=== PATIENT | female | born 1980 | race Caucasian/White ===

== ENCOUNTER 2020-12-11 13:59 | Emergency (ER) | payer OTHER, SELFPAY ==
--- NOTE | ~2020-12-11 | CT_ITS ---
EXAMINATION: CT abdomen pelvis w con EXAM DATE: 12/11/2020 18:39 INDICATION: Lower abd pain history of ovarian cyst. TECHNIQUE: Spiral CT of the abdomen and pelvis was performed following intravenous injection of 100 m L Omnipaque 350. Axial, coronal and sagittal images of the abdomen and pelvis were reviewed. The do se-length product (DLP) for this examination was 618.20 mGy-cm. The exposure was tailored according to patient size (auto mA exposure control), and iterative reconstruction (ASIR) was used as additiona l dose reduction technique. Comparison is made to prior examination from 12/28/2006. FINDINGS: There are multiple fibroids, largest is exophytic anteriorly measuring 12.6 x 8.2 cm. There is a cystic region posterior to the right ovary and uterus measuring 8.5 x 6.5 cm which is low densi ty centrally, probably cystic with a thick wall. Differential diagnosis includes tubo-ovarian abscess , degenerating fibroid. There is small amount of ascites and some generalized mesenteric fat strandin g. The liver, spleen, adrenal glands and pancreas are unremarkable. There are cholecystectomy clips. P ortal and splenic veins are patent. Kidneys enhance symmetrically. There is no hydronephrosis. Th e bladder is unremarkable. There is no retroperitoneal or pelvic lymphadenopathy. The appendix is normal. The stomach and small bowel are unremarkable. There is expected amount of c olonic stool. No free intraperitoneal gas. The heart is normal in size. There are no pericardial or pleural effusions. Right basilar subsegmental atelectasis. There are no osteoblastic or osteoly tic lesions identified. IMPRESSION: Fibroids, another right periadnexal cystic-appearing thick-walled mass which could be a t ubo-ovarian abscess, degenerating fibroid or ovarian malignancy. Small amount of ascites and fat str anding. Reviewed, dictated and finalized at location A. IMPRESSION: Fibroids, another right periadnexal cystic-appearing thick-walled m ass which could be a tubo-ovarian abscess, degenerating fibroid or ovarian eliana gnancy. Small amount of ascites and fat stranding.
[2020-12-11 14:06] VITALS: BP 134/77; PULSE 110; RESP 14; TEMP 36.4; O2SAT 99
[2020-12-11 14:22] LABS: Basophils Absolute Auto 0.1 K/mm3 (0.0-0.1); Basophils Percent Auto 0.3 % (0.2-1.2); Eosinophils Percent Auto 0.1 % (0-4.4); Hematocrit 39.3 % (37.0-47.0); Hemoglobin 13.3 g/dL (12.0-15.0); Immature Granulocyte Percent A 0.5 % (0-0.5); Lymphocytes Percent Auto 7.7 % (18.3-44.2); Mean Corpuscular HGB Conc 33.8 g/dl (32-36); Mean Corpuscular Hemoglobin 29.4 pg (26-34); Mean Corpuscular Volume 86.8 fl (80-100); Mean Platelet Volume 9.9 fl (7.4-10.4); Monocytes Absolute Auto 1.2 K/mm3 (0.1-0.6); Monocytes Percent Auto 6.2 % (2.6-8.5); Neutrophils Absolute Auto 16.7 K/mm3 (1.3-6.7); Neutrophils Percent Auto 85.2 % (45.5-73.1); Platelet Count Result 337 k/mm3 (150-375); Red Blood Count 4.53 M/mm3 (4.2-5.4); Red Cell Distribution Width 13.4 % (11.5-14.5); White Blood Count 19.6 K/mm3 (4.5-10.0)
[2020-12-11 14:32] LABS: Alanine Aminotransferase 89 U/L (4-35); Albumin Level 4.5 g/dL (3.5-5.1); Alkaline Phosphatase 104 U/L (38-126); Anion Gap 10 mmol/L (8-16); Aspartate Amino Transferase 86 U/L (14-36); Bilirubin,Total 1.5 mg/dL (0.2-1.3); Blood Urea Nitrogen 22 mg/dL (7-17); Calcium 9.4 mg/dL (8.4-10.2); Carbon Dioxide 24 mmol/L (22-30); Chloride 105 mmol/L (98-107); Estimated CRCL calculation 71 ml/min; Estimated Glomerular Filt Rate > 60; Glucose 172 mg/dL (65-110); Lipase 21 U/L (23-300); Potassium 3.7 mmol/L (3.4-5.0); Sodium 139 mmol/L (137-145)
[2020-12-11 17:00] LABS: Add Urine Microscopic? YES; Appearance Urine Clear (Clear); Bacteria Urine Trace /hpf; Bilirubin Urine Negative (Negative); Blood Urine 1+ (Negative); Color Urine Amber (Yellow); Glucose Urine UA Negative (Negative); Ketones Urine Negative (Negative); Leukocyte Esterase Ur Negative LEU/UL (Negative); Mucus Urine Moderate /lpf; Nitrate Urine Negative (Negative); Protein Urine 1+ mg/dL (Negative); Specific Grav Ur 1.023 (1.001-1.035); Squamous Epithelial Cell Urine Many /hpf (Few); Urobilinogen Urine Negative mg/dL (<2.0)
--- NOTE | 2020-12-11 17:26 | ED.ABDPAIN ---
HPI - Abdominal Pain General Chief Complaint: Abdominal Pain Stated Complaint: abd pain Time Seen by Provider: 12/11/20 17:18 Source: patient Mode of arrival: ambulatory Limitations: no limitations History of Present Illness HPI narrative: 40-year-old female past medical history of right ovarian cyst per patient as well as hypothyroidism arrives complaining of abdominal pain nausea and vomiting. Patient states lower abdominal pain rating to bilateral back. Patient states she saw Dr. Bass yesterday for right lower quadrant pain and was diagnosed with another right ovarian cyst by ultrasound. Since that time she developed increasing right lower quadrant pain and vomiting. Pain located right lower quadrant radiating to the bilateral back area worse with ambulation, improves with rest.. Described as sharp and constant. Related Data Allergies Allergy/AdvReac Type Severity Reaction Status Date / Time fexofenadine Allergy Unknown HIVES Verified 06/20/08 15:44 Review of Systems Review of Systems: CONSTITUTIONAL: no fever, no weight loss, no confusion EYES: no vision changes, no eye pain ENT: no rhinorrhea, no sore throat, no difficulty swallowing CARDIOVASCULAR: no chest pain, no leg edema, no palpitations RESPIRATORY: no cough, no shortness of breath, no hemoptysis GASTROINTESTINAL: positive for abdominal pain, vomtiing, no diarrhea GENITOURINARY: no flank pain, no dysuria, no hematuria SKIN: no rash, no jaundice MUSCULOSKELETAL: no back pain, no trauma. NEUROLOGIC: No headache, no dizziness, no focal weakness PSYCHIATRIC: No hallucinations, no suicidal ideation Exam Narrative: General: alert, afebrile, answering all questions appropriately Head: normocephalic, atraumatic Eyes: EOMI bilaterally, anicteric, no injection ENT: moist mucous membranes, oropharynx patent, no rhinorrhea Neck: supple, trachea midline, no JVD Chest: equal chest rise bilaterally, no chest wall trauma noted Lungs: clear to auscultation bilaterally, respirations unlabored CV: regular rate, no ILEANA B, calf size equal bilaterally Abd: distended, diffusely tender with increased tend to RLQ, no rebound, no gaurding : no CVA tenderness B, bladder non-distended EXT: no deformity noted, moving all extremities equally Skin: warm, dry, no pallor Neuro: alert, oriented x 3; CN 2-12 grossly intact, no dysarthria Psych: affect appropriate, though content normal Course Consultations Consultation #1: Spoke with Dr Bass, [employer] who saw patient yesterday; patient ok for discharge with cipro/flagyl; patient to call office does not think this is necessarily TOA. As long as patient able to tolerate p.o. nonsurgical abdomen he will follow up with her in the office this week she should call tomorrow without fail. Date: 12/11/20 Time: 19:29 Consultation #2: Vital Signs Vital signs: Vital Signs Temperature 36.4 C 12/11/20 14:06 Pulse Rate 110 H 12/11/20 14:06 Respiratory Rate 14 12/11/20 14:06 Blood Pressure 134/77 12/11/20 14:06 Pulse Oximetry 99 12/11/20 14:06 Temperature 36.4 C 12/11/20 14:06 Pulse Rate 106 H 12/11/20 19:37 Respiratory Rate 18 12/11/20 19:37 Blood Pressure 126/70 12/11/20 19:37 Pulse Oximetry 98 12/11/20 19:37 MDM - Abdominal Pain MDM Narrative Medical decision making narrative: 40-year-old female history of right ovarian cyst now with sudden onset of increased right lower abdominal pain with abdominal tenderness diffusely on exam. No rebound no guarding patient is afebrile. Differential Diagnosis Differential diagnosis: Likely acute appendicitis, diverticulitis and other (Ruptured ovarian cyst, tubo-ovarian abscess fibroids) Medical Records Attestation: I reviewed the patient's medical records. Lab Data Attestation: I reviewed the patient's lab results. Result diagrams: 12/11/20 14:13 12/11/20 14:13 Labs: Lab Results 12/11/20 12/11/20 12/11/20 Range/Units 14:13 14:13 16:3
[2020-12-11] MEDS: FAMOTIDINE 20 MG/2 ML VIAL IV PUSH (17:41)
[2020-12-11] MEDS: ONDANSETRON INJ 4 MG/2 ML VIAL IV PUSH (17:41)
[2020-12-11] MEDS: SODIUM CHLORIDE 0.9% IV 1,000 ML 999 ML IV CONT (17:42)
[2020-12-11] MEDS: KETOROLAC 30 MG/ML VIAL (*BKC) IV PUSH (18:52)
[2020-12-11 18:53] VITALS: BP 124/69; PULSE 99; RESP 18; O2SAT 99
[2020-12-11 19:37] VITALS: BP 126/70; PULSE 106; RESP 18; O2SAT 98
[2020-12-11 20:10] VITALS: BP 126/70; PULSE 105; O2SAT 99
== END 2020-12-11 20:10 | disposition home or self-care (01) ==
PROVIDERS: Emergency Medicine; Emergency Provider Emergency Medicine
DX: N70.92 Oophoritis, unspecified (principal)
CPT/HCPCS: 36415; 74177; 80053; 81001; 81025; 83690; 85025; 87086; 96361; 96374; 96375; 99284; J1885; J2405; J7030; Q9967